=== PATIENT | female | born 1935 | race Caucasian/White ===

== ENCOUNTER → 2020-06-04 | Outpatient (CLI) | payer OTHER | LOC: ECHO 10:30 → EXRD 15:00 → HEART 5 15:30 | DX: I63.9 Cerebral infarction, unspecified (principal); I10 Essential (primary) hypertension; I65.23 Occlusion and stenosis of bilateral carotid arteries; I35.8 Other nonrheumatic aortic valve disorders | CPT/HCPCS: ECHO; 93306; 93880 ==

== ENCOUNTER → 2020-06-24 | Outpatient (CLI) | payer OTHER | LOC: HEART 5 06-16 15:00 → EXRD 06-16 16:00 | DX: E07.9 Disorder of thyroid, unspecified (principal); I10 Essential (primary) hypertension | CPT/HCPCS: 76536 ==